=== PATIENT | male | born 2000 | race Caucasian/White ===

== ENCOUNTER 2018-04-17 17:49 | Inpatient (IN) ==
[2018-04-17] MEDS ORDERED: MORPHINE 4 MG/1 ML VIAL IV STA (18:22)
[2018-04-17] MEDS ORDERED: ONDANSETRON 4 MG/2 ML VIAL IV STA (18:22)
[2018-04-17 18:23] LABS: Basophils # 0.1 10*3/uL (0.0-0.2); Basophils % 0.5 % (0.0-0.8); Eosinophils % 0.1 % (0.00-10.9); Hematocrit 40.1 VOL% (42.0-52.0); Hemoglobin 14.3 GM/DL (14.0-18.0); Immature Granulocytes % 0.4 %; Immature Granulocytes Absolute 0.06 #; Lymphocytes # 0.7 10*3/uL (1.4-4.0); Lymphocytes % 5.4 % (21.2-54.2); Mean Corpuscular HGB Conc 35.7 GM/DL (32-36); Mean Corpuscular Hemoglobin 31 PG (27-34); Mean Corpuscular Volume 86.1 FL (87-102); Monocytes # 1.1 10*3/uL (0.11-0.8); Monocytes % 8.4 % (1.7-12.7); Neutrophils # 11.6 10*3/uL (1.4-7.4); Neutrophils % 85.2 % (38.7-73.9); Platelet Count 284 T/CUMM (130-400); Red Blood Count 4.66 MC/CUMM (3.8-5.5); Red Cell Distribution Width 12.1 % (9.3-17.3); White Blood Count 13.6 T/CUMM (4-12)
[2018-04-17] MEDS ORDERED: SODIUM CHLORIDE 0.9% 1,000 ML IV STA ×2 (18:39→20:34)
[2018-04-17 18:43] LABS: Osmolality,Calculated 265.5 MOS/KG (273-304); Potassium 3.3 MMOL/L (3.5-5.1)
[2018-04-17 18:53] LABS: Albumin 4.4 G/DL (3.4-5.0); Bilirubin,Total 0.8 MG/DL (0.2-1.0); Osmolality,Calculated 266.4 MOS/KG (273-304); Potassium 3.3 MMOL/L (3.5-5.1); Total Protein 7.7 G/DL (6.4-8.3)
[2018-04-17] MEDS ORDERED: KETOROLAC 30 MG/1 ML VIAL IV STA (19:07)
[2018-04-17] MEDS ORDERED: ACETAMINOPHEN 500 MG TABLET PO STA (19:58)
[2018-04-17] MEDS ORDERED: VANCOMYCIN INJ 1,000 MG in SODIUM CHLORIDE 0.9% 250 ML IV STA (20:02)
[2018-04-17] MEDS ORDERED: CEFEPIME 2,000 MG in SODIUM CHLORIDE 0.9% 100 ML IV STA (20:02)
[2018-04-17 22:09] LABS: Apearance,Urine CLEAR (Clear); Bilirubin,Urine Negative (Negative); Blood, Urine Negative (Negative); Glucose,Urine (UA) Negative (Negative); Ketones,Urine Negative (Negative); Mucus,Urine Occasional /LPF (Occasional); Nitrite,Urine Negative (Negative); Protein,Urine Negative; RBC,Urine 3 /HPF (0-4); Urine Color Yellow (Yellow); Urine Specific Gravity > 1.060 (1.001-1.035); Urine Urobilinogen < 2.0 EU/DL (0.2-1.0); WBC,Urine 1 /HPF (0-6)
[2018-04-17] MEDS ORDERED: ONDANSETRON 4 MG/2 ML VIAL IV PRN (22:11)
[2018-04-17] MEDS ORDERED: ACETAMINOPHEN 325 MG TABLET PO PRN (23:43)
[2018-04-18] MEDS: SODIUM CHLOR 0.45% KCL 20 MEQ 20 MEQ/1,000 ML BAG IV SCH ×3 (00:08→17:17)
[2018-04-18] MEDS ORDERED: CEFEPIME 1,000 MG in SYRINGE 1 EACH IV SCH (06:00)
[2018-04-18 06:44] LABS: Basophils # 0.1 10*3/uL (0.0-0.2); Basophils % 0.5 % (0.0-0.8); Eosinophils % 0.3 % (0.00-10.9); Hematocrit 35.5 VOL% (42.0-52.0); Hemoglobin 12.4 GM/DL (14.0-18.0); Immature Granulocytes % 0.5 %; Immature Granulocytes Absolute 0.06 #; Lymphocytes # 1.1 10*3/uL (1.4-4.0); Lymphocytes % 9.8 % (21.2-54.2); Mean Corpuscular HGB Conc 34.9 GM/DL (32-36); Mean Corpuscular Hemoglobin 31 PG (27-34); Mean Corpuscular Volume 88.3 FL (87-102); Mean Platelet Volume 9.4 FL (9.6-12.0); Monocytes # 1.3 10*3/uL (0.11-0.8); Monocytes % 11.6 % (1.7-12.7); Neutrophils # 8.8 10*3/uL (1.4-7.4); Neutrophils % 77.3 % (38.7-73.9); Platelet Count 225 T/CUMM (130-400); Red Blood Count 4.02 MC/CUMM (3.8-5.5); Red Cell Distribution Width 12.2 % (9.3-17.3); White Blood Count 11.4 T/CUMM (4-12)
[2018-04-18 07:14] LABS: Albumin 3.2 G/DL (3.4-5.0); Bilirubin,Total 0.7 MG/DL (0.2-1.0); Calcium 8.4 MG/DL (8.5-10.1); Osmolality,Calculated 272.8 MOS/KG (273-304); Total Protein 6.1 G/DL (6.4-8.3)
[2018-04-18] MEDS: ENOXAPARIN 40 MG/0.4 ML SYRINGE SUBCUT SCH (09:04)
[2018-04-18] MEDS: PANTOPRAZOLE 40 MG TABLET PO SCH (09:04)
[2018-04-18] MEDS ORDERED: busPIRone 15 MG TABLET PO PRN (09:54)
[2018-04-18] MEDS: AMOXICILLIN/CLAV 875 MG TABLET PO SCH ×2 (10:42→22:03)
[2018-04-18] MEDS: DEXAMETHASONE 4 MG TABLET PO SCH (12:35)
[2018-04-18] MEDS ORDERED: traZODone 50 MG TABLET PO SCH (21:00)
[2018-04-19] MEDS: SODIUM CHLOR 0.45% KCL 20 MEQ 20 MEQ/1,000 ML BAG IV SCH (03:47)
[2018-04-19] MEDS: AMOXICILLIN/CLAV 875 MG TABLET PO SCH (09:08)
[2018-04-19] MEDS: PANTOPRAZOLE 40 MG TABLET PO SCH (09:08)
[2018-04-19] MEDS: DEXAMETHASONE 4 MG TABLET PO SCH (09:08)
[2018-04-19] MEDS: ENOXAPARIN 40 MG/0.4 ML SYRINGE SUBCUT SCH (09:08)
[2018-04-19 11:50] VITALS: BP 117/69
== END 2018-04-19 12:23 | disposition home or self-care (01) | DRG 923 ==
LOC: N.ED 17:49 → SUATTDRO 22:11 → N.EDINP 22:11 → N.2E 23:43
PROVIDERS: ADMIT Internal Medicine; ATTEND Hospitalist